=== PATIENT | male | born 1950 | race Caucasian/White ===

== ENCOUNTER 2017-03-23 06:06 | Day surgery (SDC) | payer MEDICARE ==
[2017-03-18 11:02] VITALS: BMI 28.9
[2017-03-23] MEDS ORDERED: Vancomycin HCl 1.5 GM in Sodium Chloride 0.9% 250 ML 300 ML IVPB SCH (06:30)
[2017-03-23] MEDS ORDERED: Ropivacaine 0.2% HCl/PF 20 ML ONE (06:36)
[2017-03-23] MEDS ORDERED: Fentanyl 100 MCG/2 ML VIAL ONE (06:36)
[2017-03-23] MEDS ORDERED: Midazolam HCl 2 mg/2 ml Vial ONE (06:36)
[2017-03-23] MEDS ORDERED: traMADol HCl 50 MG TAB PO PRN ×2 (07:03)
[2017-03-23] MEDS ORDERED: Fentanyl 100 MCG/2 ML VIAL IV PRN (07:03)
[2017-03-23] MEDS ORDERED: Ropivacaine 0.2% 550 ML 550 ML NERVE BLCK SCH (07:03)
[2017-03-23] MEDS ORDERED: Ketorolac Tromethamine 30 MG/ML VIAL IVP PRN (07:03)
[2017-03-23] MEDS ORDERED: Promethazine HCl 25 MG/ML VIAL IM PRN (07:03)
[2017-03-23] MEDS ORDERED: HYDROcodone/Acetaminophen 10/325 mg Tablet PO PRN ×2 (07:03)
[2017-03-23] MEDS ORDERED: Ondansetron HCl/PF 4 MG/2 ML Vial IVP PRN (07:03)
[2017-03-23] MEDS ORDERED: Zolpidem Tartrate 5 MG TAB PO PRN (07:03)
[2017-03-23] MEDS ORDERED: ePHEDrine/0.9% NaCl/PF SYRINGE 50 mg/10 ml ONE (07:41)
[2017-03-23] MEDS ORDERED: Propofol 200 MG/20 ML VIAL ONE ×2 (07:41)
[2017-03-23] MEDS ORDERED: Ondansetron HCl/PF 4 MG/2 ML Vial ONE (07:41)
[2017-03-23] MEDS ORDERED: Dexamethasone 20 MG/5 ML VIAL ONE (07:41)
[2017-03-23] MEDS ORDERED: Ketorolac Tromethamine 30 MG/ML VIAL ONE (07:41)
--- NOTE | 2017-03-23 09:53 | OP ---
DATE OF PROCEDURE: 03/23/2017 PREOPERATIVE DIAGNOSES: Right shoulder impingement, large rotator cuff tear, acromioclavicular join t arthritis, and biceps tendon tearing and instability. POSTOPERATIVE DIAGNOSES: Right shoulder impingement, large rotator cuff tear, acromioclavicular goyo nt arthritis, and biceps tendon tearing and instability. PROCEDURES PERFORMED: Right shoulder open subacromial decompression followed by open rotator cuff r epair, followed by open distal clavicle excision, followed by open biceps tenodesis. SURGEON: Jovany Thomas M.D. PUMP OILER: Genaro Reddy PA-C BLOOD LOSS: 50 mL. ANESTHETIC: The patient had general anesthetic as well as a block placed preoperatively. IMPLANTS: We used 3 titanium double loaded rotator cuff anchors followed by 2 Bio[employer]posite SwiveLoc ks for rotator cuff repair. We also used a 7 x 23 BioComposite Bio-Tenodesis screw. DISPOSITION: He did go to the recovery room in stable condition. INDICATIONS: This is an active 66-year-old male who comes in complaining of long-term pain and weak ness and at this time it was found to have a large cuff tear and at this time opted to have surgery. DESCRIPTION OF PROCEDURE: After all appropriate consent for this were explained and signed, he was taken back to the operating room and at this time was given general anesthetic. Once anesthesia was appropriate, the patient was placed in modified beach chair position with all bony prominences well -padded. Once this was done, the right shoulder and upper extremity were then prepped and draped in standard surgical fashion. Incision line was drawn out made with a 10 blade down through skin only . The Bovie was used to coagulate any brisk venous bleeding and at this time, full thickness flaps were taken to expose the anterior portion of the acromion. This was taken all the way beyond AC goyo nt to expose AC joint as well. Any remnant meniscal tissue was removed from the AC joint and at thi s time, a saw was used to perform an anterior inferior acromioplasty as well as removal of approxima tely 1 cm of the distal clavicle. The edges were smoothed off with a rasp and a small amount of bon e wax was placed onto the bleeding cancellous bone. Once this was done, we thoroughly irrigated and dried. We then removed our bursal tissue to expose the underlying cuff. The cuff was pretty much to the entire supraspinatus going into the infraspinatus. This had retracted significantly and the rotator cuff had to be freed up on its superior and inferior surfaces in order to allow to be indu t over beyond the articular margin. This could not be brought over to its normal anatomic insertion site, so at this time we marginalized the cuff insertion by taking approximately 3 or 4 mm of carti braulio down laterally so that the rotator cuff we placed under no tension. All soft tissue was remove d as we prepared the bed for replantation of the rotator cuff tendon and once this had been done, we went ahead and found our biceps tendon which had subluxed out of the bicipital groove. This was ta gged, cut off the superior labrum and at this time, the transverse humeral ligament was opened up, e verything was coagulated. We then sutured, placed our wire, drilled with a 7 mm reamer and placed a 7 x 23 Bio[employer]posite Bio-Tenodesis screw in a standard fashion. The intraarticular portion of the b iceps tendon had been cut off prior to doing this. Once our biceps have been taken care of, we then went back to perform our cuff repair. Three double loaded titanium anchors were placed right on th e articular margin and the sutures were used to go through the cuff in mattress fashion and once the y had all been placed, we then tied these down from anterior to posterior. We then used a couple of Vicryl sutures to close a split tear between the supra and infraspinatus portions of the tendon and at this time, we went to perform a double row repair. We took string and divided in half, half ant erior and half posterior, punched and placed our SwiveLock in standard fashion. This gave us a nice repair. We covered the entire humeral head. The arm went through excellent range of motion and at this time, we thoroughly irrigated and dried. We then used multiple #1 Ethibond sutures to reattac h our deltoid to the acromion through the bone. Vicryl was used over top of this, 2-[address] aples were used for skin. Bulky sterile dressing was applied. The patient was awakened and taken t o recovery in stable condition. All counts were correct at the end of the case and he received preo perative IV antibiotics.
== END 2017-03-23 12:23 | disposition home or self-care (01) ==
LOC: SDC 06:06
PROVIDERS: ATTEND Orthopaedic Surgery
PROC: 0LQ14ZZ Repair Right Shoulder Tendon, Percutaneous Endoscopic Approach (ICD-10-PCS; principal; 2017-03-23)
PROC: 0RHJ44Z Insertion of Internal Fixation Device into Right Shoulder Joint, Percutaneous Endoscopic Approach (ICD-10-PCS; 2017-03-23)
PROC: 0RNJ4ZZ Release Right Shoulder Joint, Percutaneous Endoscopic Approach (ICD-10-PCS; 2017-03-23)
PROC: 0PB90ZZ Excision of Right Clavicle, Open Approach (ICD-10-PCS; 2017-03-23)
DX: M75.41 Impingement syndrome of right shoulder (principal); M75.101 Unspecified rotator cuff tear or rupture of right shoulder, not specified as traumatic; I10 Essential (primary) hypertension; R73.03 Prediabetes; Z88.5 Allergy status to narcotic agent; Z98.890 Other specified postprocedural states; Z79.899 Other long term (current) drug therapy
CPT/HCPCS: 23120; 23130; 23405; A4306; C1713 ×2; J1100; J1885; J2250; J2405; J2704; J2795; J3010; J3370; J7050